=== PATIENT | female | born 1955 | race Caucasian/White ===

== ENCOUNTER 2017-02-19 12:05 | Emergency (ER) | payer BC ==
[~2017-02-19] VITALS: Ht 157.5 cm; Wt 71.6 kg
[2017-02-19] MEDS ORDERED: SODIUM CHLORIDE 0.9% 1,000 ML IV ONE (12:54)
[2017-02-19] MEDS ORDERED: SODIUM CHLORIDE 0.9% 1,000ML IVBOLUS ONE (13:00)
[2017-02-19] MEDS ORDERED: SODIUM CHLORIDE FLUSH 10ML SYR IVF ONE (13:00)
[2017-02-19 13:17] LABS: HEMOGLOBIN 13.9 g/dL (11.7-16.4)
[2017-02-19 13:25] LABS: BLOOD UREA NITROGEN 11 mg/dL (7-18)
[2017-02-19 13:29] LABS: ASPARTATE AMINO TRANSFERASE 22 U/L (15-37)
[2017-02-19 13:31] LABS: ICTOTEST POSITIVE
[2017-02-19 13:32] LABS: IS PT STATUS REG ER OR PRE ER? YES
[2017-02-19] MEDS ORDERED: SERT25TA3 PO (13:55)
[2017-02-19] MEDS ORDERED: MOEX1TAB5 PO (13:55)
[2017-02-19] MEDS ORDERED: SPIR25TA3 PO (13:55)
[2017-02-19 16:34] VITALS: BP 128/74
== END 2017-02-19 16:36 | disposition home or self-care (01) ==
LOC: ED 14:12
DX: R53.1 Weakness (principal); I10 Essential (primary) hypertension; Z90.710 Acquired absence of both cervix and uterus
CPT/HCPCS: 36415; 71010; 74000; 80053; 81001; 84439; 84443; 84484; 85025; 87086; 93005; 96360; 96361; 99285; J7030

== ENCOUNTER → 2020-01-26 | Outpatient (CLI) | payer BC, MEDICARE ==
[~2020-01-26] MED LIST: MOEX1TAB5 PO; SERT25TA3 PO; SPIR25TA5 PO
== END | disposition home or self-care (01) ==
LOC: CFH 10:05
PROVIDERS: ATTEND Genetic Counselor, MS
DX: Z12.31 Encounter for screening mammogram for malignant neoplasm of breast (principal); N95.8 Other specified menopausal and perimenopausal disorders
CPT/HCPCS: 77063; 77067; 77080